=== PATIENT | male | born 1955 | race Caucasian/White ===

== ENCOUNTER 2021-10-22 11:03 | Inpatient (IN) ==
[2021-10-22] MEDS ORDERED: DEXTROSE 10% 250 ML BAG IV PRN (11:12)
[2021-10-22] MEDS ORDERED: GLUCAGON 1 MG VIAL IM PRN (11:12)
[2021-10-22] MEDS ORDERED: SODIUM CHLORIDE 0.9% 1,000 ML IV SCH (11:30)
[2021-10-22 12:49] LABS: ABG Base Excess 0.7 MMOL/L (-2.5-2.5); ABG HCO3 24.6 MMOL/L (20-26); ABG Oxygen Saturation 96.4 % (95-100); ABG PCO2 36.9 MM HG (35-48); ABG PH 7.442 (7.35-7.45); ABG TCO2 25.7 MMOL/L (23-27)
[2021-10-22 12:52] LABS: Basophils % 0.7 % (0.0-0.8); Eosinophils # 0.1 10*3/uL (0.0-0.87); Eosinophils % 1.9 % (0.00-10.9); Hemoglobin 12.7 GM/DL (14.0-18.0); Immature Granulocytes % 0.5 %; Immature Granulocytes Absolute 0.03 #; Lymphocytes # 1.5 10*3/uL (1.4-4.0); Lymphocytes % 25.4 % (21.2-54.2); Mean Corpuscular HGB Conc 32.6 GM/DL (32-36); Mean Corpuscular Volume 85.9 FL (87-102); Mean Platelet Volume 9.3 FL (9.6-12.0); Monocytes % 8.4 % (1.7-12.7); Neutrophils % 63.1 % (38.7-73.9); Platelet Count 243 T/CUMM (130-400); Red Blood Count 4.54 MC/CUMM (3.8-5.5); Red Cell Distribution Width 13.4 % (9.3-17.3); White Blood Count 5.9 T/CUMM (4-12)
[2021-10-22 13:06] LABS: Albumin 3.6 G/DL (3.4-5.0); Bilirubin,Total 0.5 MG/DL (0.20-1.00); Osmolality,Calculated 283.1 MOS/KG (273-304); Potassium 4.6 MMOL/L (3.5-5.1); Total Protein 7.2 G/DL (6.4-8.2)
[2021-10-22] MEDS ORDERED: ALBUTEROL 2.5 MG/3 ML NEB RESP TX PRN (13:14)
[2021-10-22] MEDS ORDERED: NITROGLYCERIN SL 0.4 MG TABLET SL PRN (13:14)
[2021-10-22] MEDS ORDERED: CLORAZEPATE 3.75 MG TABLET PO PRN (13:18)
[2021-10-22] MEDS ORDERED: MORPHINE 4 MG/1 ML VIAL IV PRN (13:19)
[2021-10-22] MEDS ORDERED: hydrALAZINE 20 MG/1 ML VIAL IV PRN (16:10)
[2021-10-22] MEDS: CHLORHEXIDINE 4% SOLN 118 ML BOTTLE TOP SCH ×2 (16:54→20:37)
[2021-10-22] MEDS: HYDROXYCHLOROQUINE 200 MG TABLET PO SCH (20:46)
[2021-10-22] MEDS: MONTELUKAST 10 MG TABLET PO SCH (20:46)
[2021-10-22] MEDS: CHLORHEXIDINE 0.12% ORAL RINSE 60 ML BOTTLE SWISH/SPIT SCH (20:46)
[2021-10-23] MEDS ORDERED: VANCOMYCIN 1,000 MG VIAL ONE (04:12)
[2021-10-23] MEDS ORDERED: PAPAVERINE 60 MG/2 ML VIAL ONE (04:12)
[2021-10-23] MEDS ORDERED: VANCOMYCIN 500 MG VIAL ONE (04:12)
[2021-10-23] MEDS ORDERED: CEFUROXIME INJ 1,500 MG in SODIUM CHLORIDE 0.9% 100 ML IV ONE (05:00)
[2021-10-23] MEDS ORDERED: NITROGLYCERIN DRIP 50 MG/250 ML BOTTLE IV ONE (05:41)
[2021-10-23] MEDS ORDERED: SEVOFLURANE 1 UNIT/15 MINUTE INH ONE (05:42)
[2021-10-23] MEDS ORDERED: LIDOCAINE 2% 5 ML VIAL ONE ×2 (05:42→10:33)
[2021-10-23] MEDS ORDERED: PHENYLEPHRINE DRIP 20 MG/250 ML PREMIX IV ONE (05:42)
[2021-10-23] MEDS ORDERED: ePHEDrine 50 MG/ML VIAL ONE (05:42)
[2021-10-23] MEDS ORDERED: MINERAL OIL/PETROLATUM OPH OINT 3.5 GM TUBE ONE (05:42)
[2021-10-23] MEDS ORDERED: SODIUM CHLORIDE 0.9% 1,000 ML IV ONE (05:42)
[2021-10-23] MEDS ORDERED: HEPARIN/NACL 0.9% 2 UNITS/ML 1,000 UNIT/500 ML BAG IV ONE (05:42)
[2021-10-23] MEDS ORDERED: VECURONIUM 10 MG VIAL IV ONE (05:42)
[2021-10-23] MEDS ORDERED: AMINOCAPROIC ACID 5,000 MG/20 ML VIAL ONE (05:42)
[2021-10-23] MEDS ORDERED: CALCIUM CHLORIDE 1,000 MG/10 ML VIAL IV ONE (05:42)
[2021-10-23] MEDS ORDERED: ETOMIDATE 40 MG/20 ML VIAL IV ONE (05:42)
[2021-10-23] MEDS ORDERED: MIDAZOLAM 10 MG/2 ML VIAL ONE ×3 (05:42)
[2021-10-23] MEDS ORDERED: SODIUM CHLORIDE 0.9% 250 ML IV ONE (05:42)
[2021-10-23] MEDS ORDERED: LACTATED RINGERS 1,000 ML IV ONE (05:42)
[2021-10-23] MEDS ORDERED: SUFentanil 250 MCG/5 ML AMP ONE (05:43)
[2021-10-23] MEDS ORDERED: FAMOTIDINE 20 MG TABLET PO ONE (06:00)
[2021-10-23] MEDS ORDERED: ALBUTEROL/IPRATROPIUM 3 ML NEB RESP TX ONE (06:00)
[2021-10-23] MEDS ORDERED: LORazepam 1 MG TABLET PO ONE (06:00)
[2021-10-23] MEDS ORDERED: SODIUM CHLORIDE 0.9% 1,000 ML IV SCH (06:00)
[2021-10-23] MEDS ORDERED: LACTATED RINGERS 1,000 ML IV SCH (06:00)
[2021-10-23 07:36] LABS: ABG HCO3 25.2 MMOL/L (20-26); ABG Oxygen Saturation 99.3 % (95-100); ABG PCO2 38.9 MM HG (35-48); ABG PO2 420.9 MM HG (80-95); ABG TCO2 26.4 MMOL/L (23-27); Glucose Heart Surgery 124 MG/DL (74-106); Hemoglobin Heart Surgery 12.2 G/DL (14.0-18.0); PCO2 Patient Temp Arterial 38.9 MMHG; PO2 Patient Temp Arterial 420.9 MM HG; Patient Temperature 37 CELCIUS; Potassium Heart/CVR 3.9 MMOL/L (3.5-5.1); Sodium Heart/CVR 141 MMOL/L (135-145)
[2021-10-23] MEDS ORDERED: NITROPRUSSIDE 50 MG/2 ML VIAL ONE (07:37)
[2021-10-23] MEDS ORDERED: PHENYLEPHRINE DRIP 40 MG/250 ML PREMIX IV ONE (07:38)
[2021-10-23] MEDS ORDERED: CALCIUM CHLORIDE 1,000 MG/10 ML SYRINGE IV ONE (07:38)
[2021-10-23] MEDS ORDERED: POTASSIUM CHLORIDE RIDER 20 MEQ/100 ML PREMIX IV ONE (07:38)
[2021-10-23 07:52] LABS: Bilirubin,Urine Negative (Negative); Blood, Urine Negative (Negative); Glucose,Urine (UA) Negative (Negative); Ketones,Urine Negative (Negative); Nitrite,Urine Negative (Negative); Protein,Urine Negative; RBC,Urine 1 /HPF (0-4); Squamous Epithelial Cell,Urine Occasional /HPF (0-10); Urine Appearance CLEAR (Clear); Urine Color Straw (Yellow); Urine Specific Gravity 1.009 (1.001-1.035); Urine Urobilinogen < 2.0 EU/DL (<2.0)
[2021-10-23] MEDS: CHLORHEXIDINE 4% SOLN 118 ML BOTTLE TOP SCH (08:09)
[2021-10-23] MEDS: CHLORHEXIDINE 0.12% ORAL RINSE 60 ML BOTTLE SWISH/SPIT SCH (08:10)
[2021-10-23] MEDS: HYDROXYCHLOROQUINE 200 MG TABLET PO SCH (08:10)
[2021-10-23 09:11] LABS: Hemoglobin Heart Surgery 7.3 G/DL (14.0-18.0); PCO2 Patient Temp Venous 32.5 MM HG; PH Patient Temp Venous 7.511; Potassium Heart/CVR 5.1 MMOL/L (3.5-5.1); VBG Base Excess 2.3 MEQ/L (0-4); VBG HCO3 25.9 MEQ/L (24-28); VBG Oxygen Saturation 73.3 %; VBG PCO2 35.5 MMHG (41-51); VBG PH 7.481; VBG PO2 34.5 MMHG (17-40)
[2021-10-23 09:46] LABS: Hemoglobin Heart Surgery 9.3 G/DL (14.0-18.0); PCO2 Patient Temp Venous 29.7 MM HG; PH Patient Temp Venous 7.525; PO2 Patient Temp Venous 31.4 MM HG; Potassium Heart/CVR 4.5 MMOL/L (3.5-5.1); VBG Base Excess 1.3 MEQ/L (0-4); VBG HCO3 24.6 MEQ/L (24-28); VBG Oxygen Saturation 77.5 %; VBG PCO2 33.9 MMHG (41-51); VBG PH 7.479; VBG PO2 38.8 MMHG (17-40); VBG Total CO2 25.7 MMOL/L
[2021-10-23] MEDS ORDERED: ESMOLOL 100 MG/10 ML VIAL IV ONE (09:54)
[2021-10-23 10:24] LABS: ABG Base Excess -0.3 MMOL/L (-2.5-2.5); ABG HCO3 23.9 MMOL/L (20-26); ABG Oxygen Saturation 98.7 % (95-100); ABG PH 7.428 (7.35-7.45); ABG PO2 382.2 MM HG (80-95); Glucose Heart Surgery 218 MG/DL (74-106); Hemoglobin Heart Surgery 9.4 G/DL (14.0-18.0); Ionized Calcium Arterial 1.08 MMOL/L (1.21-1.46); PH Patient Temp Arterial 7.428; PO2 Patient Temp Arterial 382.2 MM HG; Patient Temperature 37 CELCIUS; Sodium Heart/CVR 133 MMOL/L (135-145)
[2021-10-23] MEDS ORDERED: ALBUMIN 25% 25 GM/100 ML VIAL IV ONE (10:32)
[2021-10-23] MEDS ORDERED: MANNITOL 100 GM/500 ML BAG IV ONE (10:33)
[2021-10-23] MEDS ORDERED: PROTAMINE SULFATE 250 MG/25 ML VIAL IV ONE (10:33)
[2021-10-23] MEDS ORDERED: HEPARIN 10,000 UNIT/10 ML VIAL ONE (10:33)
[2021-10-23] MEDS ORDERED: methylPREDNISolone SOD SUC 1,000 MG/8 ML VIAL ONE (10:33)
[2021-10-23] MEDS ORDERED: MAGNESIUM SULFATE 5 GM/10 ML VIAL IV ONE (10:33)
[2021-10-23] MEDS ORDERED: DEXTROSE 5% KCL 20 MEQ 20 MEQ/1,000 ML BAG IV ONE (10:33)
[2021-10-23] MEDS ORDERED: SODIUM BICARBONATE 50 MEQ/50 ML VIAL IV ONE (10:34)
[2021-10-23] MEDS ORDERED: PROTAMINE SULFATE 50 MG/5 ML VIAL IV ONE (10:34)
[2021-10-23] MEDS ORDERED: FUROSEMIDE 20 MG/2 ML VIAL ONE (10:34)
[2021-10-23] MEDS ORDERED: ALBUMIN 5% 12.5 GM/250 ML VIAL IV ONE ×2 (10:42→10:43)
[2021-10-23] MEDS ORDERED: MORPHINE 10 MG/1 ML VIAL IV PRN (10:48)
[2021-10-23] MEDS ORDERED: INSULIN REGULAR DRIP 100 ML IV SCH (10:48)
[2021-10-23] MEDS ORDERED: NITROPRUSSIDE 100 MG in DEXTROSE 5% 250 ML IV PRN (10:48)
[2021-10-23] MEDS ORDERED: PHENYLEPHRINE DRIP 40 MG/250 ML PREMIX IV PRN (10:48)
[2021-10-23] MEDS ORDERED: CHLORHEXIDINE 4% SOLN 118 ML BOTTLE TOP PRN (10:48)
[2021-10-23] MEDS ORDERED: ACETAMINOPHEN 650 MG SUPP RECTAL PRN (10:48)
[2021-10-23] MEDS ORDERED: MIDAZOLAM 10 MG/2 ML VIAL IV PRN (10:48)
[2021-10-23] MEDS ORDERED: DEXTROSE 10% 250 ML BAG IV PRN ×2 (10:48)
[2021-10-23] MEDS ORDERED: INSULIN REGULAR 100 UNIT/ML IV PRN (10:48)
[2021-10-23] MEDS ORDERED: SODIUM CHLORIDE 0.45% 1,000 ML IV SCH ×2 (10:48)
[2021-10-23] MEDS ORDERED: MAGNESIUM SULF RIDER 2 GM/50 ML PREMIX IV PRN (10:48)
[2021-10-23] MEDS ORDERED: ONDANSETRON 4 MG/2 ML VIAL IV PRN (10:48)
[2021-10-23] MEDS ORDERED: MAGNESIUM SULF RIDER 4 GM/100 ML PREMIX IV PRN (10:48)
[2021-10-23] MEDS ORDERED: MIDAZOLAM 2 MG/2 ML VIAL IV PRN (10:48)
[2021-10-23] MEDS ORDERED: CALCIUM CHLORIDE 1,000 MG/10 ML SYRINGE IV PRN (10:48)
[2021-10-23] MEDS ORDERED: VECURONIUM 10 MG VIAL IV PRN ×2 (10:48)
[2021-10-23] MEDS ORDERED: LACTATED RINGERS 250 ML IV PRN (10:48)
[2021-10-23] MEDS ORDERED: INSULIN REGULAR 100 UNIT/ML IV ONE (10:48)
[2021-10-23] MEDS: LACTATED RINGERS 1,000 ML IV PRN ×3 (11:41→17:33)
[2021-10-23 11:59] LABS: ABG Base Excess -1.9 MMOL/L (-2.5-2.5); ABG HCO3 22.6 MMOL/L (20-26); ABG Oxygen Saturation 98.3 % (95-100); ABG PCO2 36.9 MM HG (35-48); ABG PH 7.404 (7.35-7.45); ABG PO2 162.2 MM HG (80-95); ABG TCO2 23.7 MMOL/L (23-27); Glucose Heart Surgery 183 MG/DL (74-106); Hemoglobin Heart Surgery 8.8 G/DL (14.0-18.0); Potassium Heart/CVR 3.8 MMOL/L (3.5-5.1)
[2021-10-23 12:00] LABS: Basophils % 0.2 % (0.0-0.8); Eosinophils % 0.2 % (0.00-10.9); Hematocrit 25.2 VOL% (42.0-52.0); Hemoglobin 8.4 GM/DL (14.0-18.0); Immature Granulocytes % 0.8 %; Immature Granulocytes Absolute 0.12 #; Lymphocytes # 1.1 10*3/uL (1.4-4.0); Lymphocytes % 7.2 % (21.2-54.2); Mean Corpuscular HGB Conc 33.3 GM/DL (32-36); Mean Corpuscular Volume 85.1 FL (87-102); Mean Platelet Volume 9.8 FL (9.6-12.0); Monocytes % 5.2 % (1.7-12.7); Neutrophils % 86.4 % (38.7-73.9); Platelet Count 187 T/CUMM (130-400); Red Blood Count 2.96 MC/CUMM (3.8-5.5); Red Cell Distribution Width 13.6 % (9.3-17.3)
[2021-10-23 12:15] LABS: INR 1.1; PT Patient Result 12.8 SECS (10.5-12.0); Partial Thromboplastin Time 25.5 SECS (23.8-32.1)
[2021-10-23 12:40] LABS: CKMB % 5.6 %
[2021-10-23 12:43] LABS: Albumin 3.8 G/DL (3.4-5.0); Bilirubin,Total 0.6 MG/DL (0.20-1.00); Calcium 8.3 MG/DL (8.5-10.1); Osmolality,Calculated 280.7 MOS/KG (273-304); Potassium 3.8 MMOL/L (3.5-5.1); Total Protein 6.1 G/DL (6.4-8.2)
[2021-10-23] MEDS: POTASSIUM CHLORIDE RIDER 20 MEQ/100 ML PREMIX IV PRN ×2 (12:51→14:37)
[2021-10-23 12:53] LABS: High Sensitive Troponin I* 3424.6 ng/L (0-78)
[2021-10-23 12:59] LABS: Band Neutrophils 2 % (0-10); Lymphocytes 6 % (20-55); Segmented Neutrophils 89 % (50-85); Total Cells Counted 100
[2021-10-23 13:01] LABS: Hypochromia Slight; Platelet Estimate Adequate; Polychromasia Slight
[2021-10-23 14:14] LABS: ABG Base Excess -0.6 MMOL/L (-2.5-2.5); ABG HCO3 23.2 MMOL/L (20-26); ABG Oxygen Saturation 97.9 % (95-100); ABG PCO2 34.5 MM HG (35-48); ABG PH 7.446 (7.35-7.45); ABG PO2 129.6 MM HG (80-95); ABG TCO2 24.3 MMOL/L (23-27); Glucose Heart Surgery 195 MG/DL (74-106); Hemoglobin Heart Surgery 8.1 G/DL (14.0-18.0); Potassium Heart/CVR 3.6 MMOL/L (3.5-5.1)
[2021-10-23] MEDS: POTASSIUM CHLORIDE RIDER 10 MEQ/100 ML PREMIX IV PRN ×2 (15:20→16:15)
[2021-10-23 16:05] LABS: ABG Base Excess -1.7 MMOL/L (-2.5-2.5); ABG HCO3 22.2 MMOL/L (20-26); ABG Oxygen Saturation 97.6 % (95-100); ABG PCO2 34.6 MM HG (35-48); ABG PH 7.426 (7.35-7.45); ABG PO2 114.1 MM HG (80-95); ABG TCO2 23.3 MMOL/L (23-27); Glucose Heart Surgery 175 MG/DL (74-106); Hemoglobin Heart Surgery 10.4 G/DL (14.0-18.0); Potassium Heart/CVR 4.4 MMOL/L (3.5-5.1)
[2021-10-23] MEDS: ALBUMIN 5% 12.5 GM/250 ML VIAL IV PRN ×2 (17:06→21:35)
[2021-10-23] MEDS: CEFUROXIME INJ 1,500 MG in SODIUM CHLORIDE 0.9% 100 ML IV SCH (17:59)
[2021-10-23] MEDS ORDERED: DEXMEDETOMIDINE 200 MCG in SODIUM CHLORIDE 0.9% 48 ML IV PRN (18:22)
[2021-10-23 20:22] LABS: ABG Base Excess -1.5 MMOL/L (-2.5-2.5); ABG HCO3 23.2 MMOL/L (20-26); ABG Oxygen Saturation 97.6 % (95-100); ABG PH 7.385 (7.35-7.45); ABG PO2 97.9 MM HG (80-95); ABG TCO2 21.4 MMOL/L (23-27); Glucose Heart Surgery 166 MG/DL (74-106); Hematocrit Heart Surgery 29.1 PERCENT (42-52); Hemoglobin Heart Surgery 9.4 G/DL (14.0-18.0); Potassium Heart/CVR 4.8 MMOL/L (3.5-5.1)
[2021-10-23 20:52] LABS: CKMB % 9.8 %
[2021-10-23 20:55] LABS: High Sensitive Troponin I* 8908.4 ng/L (0-78)
[2021-10-23] MEDS ORDERED: DEXMEDETOMIDINE 400 MCG in SODIUM CHLORIDE 0.9% 96 ML IV PRN (21:35)
[2021-10-23 23:01] LABS: ABG Base Excess -1.4 MMOL/L (-2.5-2.5); ABG HCO3 23.2 MMOL/L (20-26); ABG Oxygen Saturation 97.7 % (95-100); ABG PCO2 37.2 MM HG (35-48); ABG PO2 94.9 MM HG (80-95); ABG TCO2 21.1 MMOL/L (23-27); Glucose Heart Surgery 172 MG/DL (74-106); Hematocrit Heart Surgery 29.1 PERCENT (42-52); Hemoglobin Heart Surgery 9.4 G/DL (14.0-18.0); Potassium Heart/CVR 4.8 MMOL/L (3.5-5.1)
[2021-10-23] MEDS ORDERED: AMIODARONE INJ 150 MG in DEXTROSE 5% 100 ML IV ONE (23:11)
[2021-10-23] MEDS ORDERED: AMIODARONE INJ 450 MG in DEXTROSE 5% 241 ML IV SCH (23:30)
[2021-10-24 01:18] LABS: ABG Base Excess -1.9 MMOL/L (-2.5-2.5); ABG HCO3 22.8 MMOL/L (20-26); ABG Oxygen Saturation 99.2 % (95-100); ABG PCO2 35.8 MM HG (35-48); ABG PH 7.403 (7.35-7.45); ABG TCO2 20.5 MMOL/L (23-27); Glucose Heart Surgery 184 MG/DL (74-106); Hematocrit Heart Surgery 29.2 PERCENT (42-52); Hemoglobin Heart Surgery 9.4 G/DL (14.0-18.0); Potassium Heart/CVR 4.7 MMOL/L (3.5-5.1)
[2021-10-24 01:18] LABS: Hematocrit 26.8 VOL% (42.0-52.0); Hemoglobin 9.2 GM/DL (14.0-18.0); Immature Granulocytes % 0.7 %; Immature Granulocytes Absolute 0.08 #; Lymphocytes # 0.5 10*3/uL (1.4-4.0); Lymphocytes % 4.6 % (21.2-54.2); Mean Corpuscular HGB Conc 34.3 GM/DL (32-36); Mean Corpuscular Volume 84.8 FL (87-102); Mean Platelet Volume 9.7 FL (9.6-12.0); Neutrophils % 89.7 % (38.7-73.9); Platelet Count 153 T/CUMM (130-400); Red Blood Count 3.16 MC/CUMM (3.8-5.5); Red Cell Distribution Width 13.4 % (9.3-17.3); White Blood Count 10.8 T/CUMM (4-12)
[2021-10-24 01:47] LABS: CKMB % 10.8 %
[2021-10-24] MEDS: CHLORHEXIDINE 0.12% ORAL RINSE 60 ML BOTTLE SWISH/SPIT SCH ×4 (01:48→20:45)
[2021-10-24 01:49] LABS: High Sensitive Troponin I* 12702.4 ng/L (0-78)
[2021-10-24 01:56] LABS: Albumin 3.6 G/DL (3.4-5.0); Bilirubin,Direct 0.14 MG/DL (0.0-0.20); Bilirubin,Total 0.4 MG/DL (0.20-1.00); Calcium 7.5 MG/DL (8.5-10.1); Osmolality,Calculated 282.5 MOS/KG (273-304); Potassium 4.5 MMOL/L (3.5-5.1); Total Protein 6.1 G/DL (6.4-8.2)
[2021-10-24 02:23] LABS: Lymphocytes 2 % (20-55); Platelet Estimate Adequate; Segmented Neutrophils 96 % (50-85); Total Cells Counted 100
[2021-10-24 05:13] LABS: ABG Base Excess -2.4 MMOL/L (-2.5-2.5); ABG HCO3 22.4 MMOL/L (20-26); ABG Oxygen Saturation 99.2 % (95-100); ABG PCO2 39.7 MM HG (35-48); ABG PH 7.364 (7.35-7.45); ABG TCO2 20.4 MMOL/L (23-27); Glucose Heart Surgery 168 MG/DL (74-106); Hematocrit Heart Surgery 34.6 PERCENT (42-52); Hemoglobin Heart Surgery 11.2 G/DL (14.0-18.0); Potassium Heart/CVR 4.8 MMOL/L (3.5-5.1)
[2021-10-24] MEDS ORDERED: AMIODARONE INJ 450 MG in DEXTROSE 5% 241 ML IV SCH (05:30)
[2021-10-24] MEDS ORDERED: oxyCODONE/ACETAMINOPHEN 5-325 MG TABLET PO PRN (07:26)
[2021-10-24] MEDS ORDERED: FLUTICASONE/SALMETEROL 500-50 DISKUS 14 DOSE INH PRN (07:28)
[2021-10-24] MEDS ORDERED: CELECOXIB 200 MG CAPSULE PO PRN (07:28)
[2021-10-24] MEDS: OMEGA 3 ACID ETHYL ESTERS 1 GM CAPSULE PO SCH ×2 (09:29→20:44)
[2021-10-24] MEDS: ASPIRIN EC 81 MG TABLET PO SCH (09:29)
[2021-10-24] MEDS: CHOLECALCIFEROL 5,000 UNIT TABLET PO SCH ×2 (09:29→20:43)
[2021-10-24] MEDS: ZINC GLUCONATE 50 MG TABLET PO SCH ×2 (09:29→21:31)
[2021-10-24] MEDS: MAGNESIUM OXIDE 400 MG TABLET PO SCH ×2 (09:30→20:44)
[2021-10-24] MEDS: METOPROLOL TARTRATE 25 MG TABLET PO SCH ×2 (09:31→20:44)
[2021-10-24] MEDS: PANTOPRAZOLE 40 MG TABLET PO SCH (09:31)
[2021-10-24] MEDS: ASCORBIC ACID 500 MG TABLET PO SCH ×2 (09:31→20:44)
[2021-10-24] MEDS: AMIODARONE 200 MG TABLET PO SCH ×2 (09:31→20:44)
[2021-10-24] MEDS: EZETIMIBE 10 MG TABLET PO SCH (09:39)
[2021-10-24] MEDS: CEFUROXIME INJ 1,500 MG in SODIUM CHLORIDE 0.9% 100 ML IV SCH ×2 (09:39→18:20)
[2021-10-24] MEDS ORDERED: ZALEPLON 5 MG CAPSULE PO PRN (10:31)
[2021-10-24] MEDS ORDERED: MAGNESIUM HYDROXIDE SUSP 30 ML UDCUP PO PRN (10:31)
[2021-10-24] MEDS ORDERED: MAGNESIUM SULF RIDER 4 GM/100 ML PREMIX IV PRN (10:31)
[2021-10-24] MEDS ORDERED: POTASSIUM CHLORIDE 20 MEQ TABLET PO PRN (10:31)
[2021-10-24] MEDS ORDERED: ACETAMINOPHEN 325 MG TABLET PO PRN (10:31)
[2021-10-24] MEDS ORDERED: ALUMINUM/MAGNES/SIMETH MAX STR 30 ML UDCUP PO PRN (10:31)
[2021-10-24] MEDS ORDERED: SODIUM CHLOR 0.45% KCL 20 MEQ 20 MEQ/1,000 ML BAG IV SCH (10:31)
[2021-10-24] MEDS ORDERED: ONDANSETRON 4 MG/2 ML VIAL IV PRN (10:31)
[2021-10-24] MEDS ORDERED: MAGNESIUM SULF RIDER 2 GM/50 ML PREMIX IV PRN (10:31)
[2021-10-24] MEDS ORDERED: GLUCAGON 1 MG VIAL IM PRN (10:31)
[2021-10-24] MEDS ORDERED: DEXTROSE 10% 250 ML BAG IV PRN (10:31)
[2021-10-24] MEDS: FERROUS SULFATE 325 MG TABLET PO SCH (10:49)
[2021-10-24] MEDS: DOCUSATE SODIUM 100 MG CAPSULE PO SCH (11:01)
[2021-10-24 15:33] LABS: CKMB % 7.4 %
[2021-10-24] MEDS: HYDROXYCHLOROQUINE 200 MG TABLET PO SCH ×2 (15:33→20:43)
[2021-10-24 15:35] LABS: High Sensitive Troponin I* 15149.9 ng/L (0-78)
[2021-10-24] MEDS: SIMVASTATIN 10 MG TABLET PO SCH (20:44)
[2021-10-24] MEDS: MONTELUKAST 10 MG TABLET PO SCH (20:44)
[2021-10-25] MEDS ORDERED: FUROSEMIDE 40 MG/4 ML VIAL IV ONE (06:00)
[2021-10-25 06:55] LABS: Basophils % 0.2 % (0.0-0.8); Eosinophils % 0.1 % (0.00-10.9); Hematocrit 36.4 VOL% (42.0-52.0); Immature Granulocytes % 0.9 %; Immature Granulocytes Absolute 0.15 #; Lymphocytes # 1.5 10*3/uL (1.4-4.0); Lymphocytes % 8.3 % (21.2-54.2); Mean Corpuscular HGB Conc 32.1 GM/DL (32-36); Mean Corpuscular Volume 88.8 FL (87-102); Mean Platelet Volume 10.3 FL (9.6-12.0); Monocytes % 8.1 % (1.7-12.7); Neutrophils % 82.4 % (38.7-73.9); Red Cell Distribution Width 14.3 % (9.3-17.3)
[2021-10-25 06:56] LABS: White Blood Count 17.5 T/CUMM (4-12)
[2021-10-25 06:57] LABS: Hemoglobin 11.7 GM/DL (14.0-18.0); Platelet Count 217 T/CUMM (130-400)
[2021-10-25 07:25] LABS: Albumin 3.7 G/DL (3.4-5.0); Bilirubin,Total 0.5 MG/DL (0.20-1.00); Calcium 8.5 MG/DL (8.5-10.1); Osmolality,Calculated 269.4 MOS/KG (273-304); Potassium 4.6 MMOL/L (3.5-5.1); Total Protein 6.9 G/DL (6.4-8.2)
[2021-10-25 07:52] LABS: Bilirubin,Direct 0.16 MG/DL (0.0-0.20); Bilirubin,Indirect 0.3 MG/DL (0.0-1.0); Bilirubin,Total 0.5 MG/DL (0.20-1.00); CKMB % 2.5 %
[2021-10-25 07:58] LABS: High Sensitive Troponin I* 8550.8 ng/L (0-78)
[2021-10-25] MEDS ORDERED: POLYETHYLENE GLYCOL POWDER 17 GM PACK PO PRN (09:13)
[2021-10-25] MEDS ORDERED: LACTULOSE 20 GM/30 ML UDCUP PO PRN (09:13)
[2021-10-25] MEDS: FERROUS SULFATE 325 MG TABLET PO SCH (10:21)
[2021-10-25] MEDS: AMIODARONE 200 MG TABLET PO SCH ×2 (10:21→20:23)
[2021-10-25] MEDS: OMEGA 3 ACID ETHYL ESTERS 1 GM CAPSULE PO SCH ×2 (10:21→20:23)
[2021-10-25] MEDS: DOCUSATE SODIUM 100 MG CAPSULE PO SCH (10:21)
[2021-10-25] MEDS: ASPIRIN EC 81 MG TABLET PO SCH (10:22)
[2021-10-25] MEDS: HYDROXYCHLOROQUINE 200 MG TABLET PO SCH ×2 (10:22→20:24)
[2021-10-25] MEDS: EZETIMIBE 10 MG TABLET PO SCH (10:22)
[2021-10-25] MEDS: ASCORBIC ACID 500 MG TABLET PO SCH ×2 (10:22→20:23)
[2021-10-25] MEDS: CHOLECALCIFEROL 5,000 UNIT TABLET PO SCH ×2 (10:22→20:47)
[2021-10-25] MEDS: PANTOPRAZOLE 40 MG TABLET PO SCH (10:22)
[2021-10-25] MEDS: CHLORHEXIDINE 0.12% ORAL RINSE 60 ML BOTTLE SWISH/SPIT SCH ×2 (10:23→20:24)
[2021-10-25] MEDS: METOPROLOL TARTRATE 25 MG TABLET PO SCH ×2 (10:23→20:24)
[2021-10-25] MEDS: MAGNESIUM OXIDE 400 MG TABLET PO SCH ×2 (10:25→20:24)
[2021-10-25] MEDS: ZINC GLUCONATE 50 MG TABLET PO SCH ×2 (10:26→20:24)
[2021-10-25] MEDS: MONTELUKAST 10 MG TABLET PO SCH (20:23)
[2021-10-25] MEDS: SIMVASTATIN 10 MG TABLET PO SCH (20:24)
[2021-10-26 05:42] LABS: Basophils % 0.1 % (0.0-0.8); Eosinophils % 0.1 % (0.00-10.9); Hematocrit 31.6 VOL% (42.0-52.0); Hemoglobin 10.5 GM/DL (14.0-18.0); Immature Granulocytes % 0.6 %; Immature Granulocytes Absolute 0.09 #; Lymphocytes # 1.5 10*3/uL (1.4-4.0); Lymphocytes % 10.7 % (21.2-54.2); Mean Corpuscular HGB Conc 33.2 GM/DL (32-36); Mean Corpuscular Volume 86.8 FL (87-102); Monocytes % 9.3 % (1.7-12.7); NRBC # 0.02 10*3/uL; Neutrophils % 79.2 % (38.7-73.9); Platelet Count 179 T/CUMM (130-400); Red Blood Count 3.64 MC/CUMM (3.8-5.5); White Blood Count 13.9 T/CUMM (4-12)
[2021-10-26 05:56] LABS: Bilirubin,Indirect 0.5 MG/DL (0.0-1.0)
[2021-10-26 07:16] LABS: Albumin 3.4 G/DL (3.4-5.0); Bilirubin,Total 0.6 MG/DL (0.20-1.00); Calcium 8.5 MG/DL (8.5-10.1); Osmolality,Calculated 272.1 MOS/KG (273-304); Potassium 4.6 MMOL/L (3.5-5.1); Total Protein 6.7 G/DL (6.4-8.2)
[2021-10-26] MEDS: DOCUSATE SODIUM 100 MG CAPSULE PO SCH (10:11)
[2021-10-26] MEDS: EZETIMIBE 10 MG TABLET PO SCH (10:11)
[2021-10-26] MEDS: CHOLECALCIFEROL 5,000 UNIT TABLET PO SCH ×2 (10:11→20:28)
[2021-10-26] MEDS: MAGNESIUM OXIDE 400 MG TABLET PO SCH ×2 (10:11→20:28)
[2021-10-26] MEDS: AMIODARONE 200 MG TABLET PO SCH ×2 (10:12→20:29)
[2021-10-26] MEDS: ASCORBIC ACID 500 MG TABLET PO SCH ×2 (10:12→20:28)
[2021-10-26] MEDS: OMEGA 3 ACID ETHYL ESTERS 1 GM CAPSULE PO SCH ×2 (10:12→20:28)
[2021-10-26] MEDS: PANTOPRAZOLE 40 MG TABLET PO SCH (10:12)
[2021-10-26] MEDS: ASPIRIN EC 81 MG TABLET PO SCH (10:12)
[2021-10-26] MEDS: CHLORHEXIDINE 0.12% ORAL RINSE 60 ML BOTTLE SWISH/SPIT SCH ×2 (10:13→20:30)
[2021-10-26] MEDS: HYDROXYCHLOROQUINE 200 MG TABLET PO SCH ×2 (10:13→20:28)
[2021-10-26] MEDS: FERROUS SULFATE 325 MG TABLET PO SCH (10:13)
[2021-10-26] MEDS: METOPROLOL TARTRATE 25 MG TABLET PO SCH ×2 (10:13→20:30)
[2021-10-26] MEDS: ZINC GLUCONATE 50 MG TABLET PO SCH ×2 (12:08→20:28)
[2021-10-26] MEDS ORDERED: AMIODARONE INJ 150 MG in DEXTROSE 5% 100 ML IV ONE (19:50)
[2021-10-26] MEDS ORDERED: DILTIAZEM 25 MG/5 ML VIAL IV ONE (19:51)
[2021-10-26] MEDS ORDERED: DILTIAZEM INJ 100 MG in SODIUM CHLORIDE 0.9% 100 ML IV SCH (20:00)
[2021-10-26] MEDS: MONTELUKAST 10 MG TABLET PO SCH (20:28)
[2021-10-26] MEDS: SIMVASTATIN 10 MG TABLET PO SCH (20:28)
[2021-10-27 06:03] LABS: Calcium 8.8 MG/DL (8.5-10.1); Osmolality,Calculated 278.7 MOS/KG (273-304); Potassium 4.3 MMOL/L (3.5-5.1)
[2021-10-27] MEDS ORDERED: METOPROLOL TARTRATE 25 MG TABLET PO SCH (09:00)
[2021-10-27] MEDS ORDERED: APIXABAN 2.5 MG TABLET PO SCH (09:00)
[2021-10-27] MEDS: PANTOPRAZOLE 40 MG TABLET PO SCH (10:23)
[2021-10-27] MEDS: ASCORBIC ACID 500 MG TABLET PO SCH (10:23)
[2021-10-27] MEDS: EZETIMIBE 10 MG TABLET PO SCH (10:24)
[2021-10-27] MEDS: OMEGA 3 ACID ETHYL ESTERS 1 GM CAPSULE PO SCH (10:24)
[2021-10-27] MEDS: HYDROXYCHLOROQUINE 200 MG TABLET PO SCH (10:24)
[2021-10-27] MEDS: CHLORHEXIDINE 0.12% ORAL RINSE 60 ML BOTTLE SWISH/SPIT SCH (10:24)
[2021-10-27] MEDS: AMIODARONE 200 MG TABLET PO SCH (10:24)
[2021-10-27] MEDS: ASPIRIN EC 81 MG TABLET PO SCH (10:24)
[2021-10-27] MEDS: FERROUS SULFATE 325 MG TABLET PO SCH (10:24)
[2021-10-27] MEDS: ZINC GLUCONATE 50 MG TABLET PO SCH (10:24)
[2021-10-27] MEDS: MAGNESIUM OXIDE 400 MG TABLET PO SCH (10:25)
[2021-10-27] MEDS: DOCUSATE SODIUM 100 MG CAPSULE PO SCH (10:25)
[2021-10-27 10:46] LABS: Basophils % 0.1 % (0.2-1.0); Eosinophils % 0.3 % (0.0-10.0); Hematocrit 31.8 VOL% (42.0-52.0); Hemoglobin 10.5 GM/DL (14.0-18.0); Lymphocytes # 1.3 # (1.3-2.9); Lymphocytes % 12.2 % (20.5-45.5); Mean Corpuscular Volume 87.6 FL (80-94); Mean Platelet Volume 10.5 FL (7.4-10.4); Monocytes % 8.1 % (5.5-11.7); Neutrophils % 78.6 % (43.0-65.0); Platelet Count 209 T/CUMM (130-400); Red Blood Count 3.63 MC/CUMM (4.70-6.10); White Blood Count 10.5 T/CUMM (4.8-10.8)
[2021-10-27] MEDS: CHOLECALCIFEROL 5,000 UNIT TABLET PO SCH (10:56)
[2021-10-27 12:23] VITALS: BP 146/74
== END 2021-10-27 13:17 | disposition home health service (06) | DRG 236 ==
LOC: N.TELES 11:03 → N.CVR 10-23 10:55 → N.TELES 10-24 14:41